=== PATIENT | male | born 1990 | race Caucasian/White ===

== ENCOUNTER 2020-04-10 17:49 | Emergency (ER) | payer OTHER ==
[~2020-04-10] VITALS: Ht 185.4 cm; Wt 89.9 kg
[2020-04-10 17:49] VITALS: BP 141/78
[2020-04-10] MEDS ORDERED: AZITHROMYCIN 250MG TABLET PO ONE (18:00)
[2020-04-10] MEDS ORDERED: cefTRIAXone SOD 250MG VIAL (J0696 PER 250MG) IM ONE (18:00)
[2020-04-10] MEDS ORDERED: LIDOCAINE 1% SDV 5ML VIAL DILUENT ONE (18:00)
[2020-04-10] MEDS ORDERED: DOXY100C37 PO (18:25)
[2020-04-10 21:10] LABS: CHLAMYDIA DNA AMPLIFICATION NEGATIVE (NEGATIVE); GC DNA AMPLIFICATION POSITIVE (NEGATIVE)
== END 2020-04-10 18:34 | disposition home or self-care (01) ==
LOC: M ED 17:49
DX: Z20.2 Contact with and (suspected) exposure to infections with a predominantly sexual mode of transmission (principal); F17.210 Nicotine dependence, cigarettes, uncomplicated
CPT/HCPCS: 87661; 96372; 99282; J0696

== ENCOUNTER 2020-08-15 12:10 | Emergency (ER) | payer OTHER ==
[~2020-08-15] VITALS: Ht 185.4 cm; Wt 89.4 kg
[~2020-08-15 12:10] MED LIST: DOXY100C37 PO
[2020-08-15] MEDS ORDERED: BACTRIM 160MG/800MG DS TAB PO ONE (13:15)
[2020-08-15 13:40] LABS: BASO # 0.1 10^3/uL (0.0-0.2); BASO % 0.6 % (0.0-1.0); EOS # 0.3 10^3/uL (0.0-0.5); HEMATOCRIT 48.6 % (42.0-52.0); HEMOGLOBIN 14.8 g/dl (13.5-17.5); LYMPH # 3.7 10^3/uL (1.5-5.0); LYMPH % 47.2 % (24.0-44.0); MEAN CORPUSCULAR HEMOGLOBIN 25.6 pg (27.0-33.0); MEAN CORPUSCULAR HGB CONC 30.5 g/dl (32.0-36.5); MEAN CORPUSCULAR VOLUME 84.2 fl (80.0-96.0); MONO # 1.1 10^3/uL (0.0-0.8); MONO % 14.5 % (0.0-5.0); NEUTROPHILS # 2.6 10^3/uL (1.5-8.5); NEUTROPHILS % 33.6 % (36.0-66.0); PLATELET COUNT, AUTOMATED 346 10^3/uL (150-450); RED BLOOD COUNT 5.77 10^6/uL (4.30-6.10); WHITE BLOOD COUNT 7.7 10^3/uL (4.0-10.0)
[2020-08-15] MEDS ORDERED: BACT800T5 PO (13:51)
[2020-08-15 13:57] VITALS: BP 135/80
[2020-08-15 14:06] LABS: ALBUMIN 4.2 GM/DL (3.2-5.2); BILIRUBIN,DIRECT 0.1 MG/DL (0.0-0.2); BILIRUBIN,TOTAL 0.4 MG/DL (0.2-1.0); C REACTIVE PROTEIN QUANTITATIV 0.74 MG/DL (0.00-0.30); TOTAL PROTEIN 8.1 GM/DL (6.4-8.2)
[2020-08-15 14:13] LABS: ERYTHROCYTE SEDIMENTATION RATE 2 mm/hr (0-15)
[2020-08-16] MEDS ORDERED: KETO10TAB PO (07:52)
[2020-08-16] MEDS ORDERED: DOXY100C37 PO (07:52)
[2020-08-16] MEDS ORDERED: ONDA4TAB6 PO (07:52)
== END 2020-08-15 13:58 | disposition home or self-care (01) ==
LOC: M ED 12:10
DX: L02.213 Cutaneous abscess of chest wall (principal); L03.313 Cellulitis of chest wall; L81.8 Other specified disorders of pigmentation

== ENCOUNTER 2020-08-16 06:14 | Emergency (ER) | payer OTHER ==
[~2020-08-16] VITALS: Ht 185.4 cm; Wt 88.5 kg
[~2020-08-16 06:14] MED LIST changes: +BACT800T5 PO
[2020-08-16] MEDS ORDERED: ONDANSETRON 4 MG ORAL DISINTEGRATING TAB PO ONE (06:45)
[2020-08-16] MEDS ORDERED: ACETAMINOPHEN 325 MG TAB PO ONE (06:45)
[2020-08-16] MEDS ORDERED: ONDA4TAB6 PO (07:52)
[2020-08-16] MEDS ORDERED: KETO10TAB PO (07:52)
[2020-08-16] MEDS ORDERED: DOXY100C37 PO (07:52)
[2020-08-16 08:07] VITALS: BP 116/60
== END 2020-08-16 08:09 | disposition home or self-care (01) ==
LOC: M ED 06:14
DX: R11.2 Nausea with vomiting, unspecified (principal); R50.9 Fever, unspecified; R51.9 Headache, unspecified; M79.10 Myalgia, unspecified site; L02.213 Cutaneous abscess of chest wall
CPT/HCPCS: 36415; 99283; Q0162; U0003

== ENCOUNTER 2021-09-07 21:16 | Emergency (ER) | payer OTHER ==
[~2021-09-07] VITALS: Ht 185.4 cm; Wt 93.7 kg
[2021-09-07 21:16] VITALS: BP 140/79
[~2021-09-07 21:16] MED LIST changes: +DOXY-443 PO; -DOXY100C37 PO; +KETO10TAB PO; +ONDA4TAB6 PO
== END 2021-09-08 04:03 | disposition left against medical advice (07) ==
LOC: M ED 21:16
DX: Z53.21 Procedure and treatment not carried out due to patient leaving prior to being seen by health care provider (principal)